=== PATIENT | male | born 1955 | race Caucasian/White ===

== ENCOUNTER 2024-03-26 14:08 | Outpatient (CLI) | payer MEDICARE, MEDICAID, SELFPAY ==
--- NOTE | 2024-03-26 | DI.RAD_ITS ---
Exam(s) XR LUMBAR SPINE COMPLETE EXAM: XR LUMBAR SPINE COMPLETE CLINICAL HISTORY: M25.552: Pain in LT hip. TECHNIQUE: 2D digital imaging was performed. Five views. COMPARISON: No exams were available for comparison FINDINGS: BONES: No acute fracture or destructive lesion is visible. There is some mild loss of vertebral jamel dy height at L1 and L4. T11 vertebral body also shows mild loss of height. Old right L1 through L5 transverse process fractures. Facet degenerative changes present greatest at L3-4 through L5-S1. DISKS: Multilevel disc space narrowing and osteophyte formation, greatest at L4-5. ALIGNMENT: Lumbar spinal alignment is within normal limits. SOFT TISSUE: Vascular calcifications. Midline skin natali. Multiple surgical clips in the paraspin al region. IMPRESSION: Old mild compression fractures of T11, L1 and L4. Old right-sided transverse process fractures. Multilevel degenerative disc changes and facet degenerative changes, greatest at L4-5. DATA REPOSITORY: RADIATION DOSE DELIVERED:
--- NOTE | 2024-03-26 | DI.RAD_ITS ---
Exam(s) XR HIP LT COMPLETE AP PELVIS EXAM: XR HIP LT COMPLETE AP PELVIS CLINICAL HISTORY: M25.552: Pain in LT hip. TECHNIQUE: 2D digital imaging was performed. Two views. COMPARISON: No exams were available for comparison FINDINGS: BONES: No acute fracture is present. No bony destructive lesion is seen. JOINTS: No dislocation present. The SI joints and pubic symphysis are intact. There is severe narrowing of the left hip joint space, with a [id number] appearance. There are lar ge subchondral cysts on both sides of the joint. There is some flattening of the left femoral head a nd and some remodeling of the acetabulum as well as periarticular spurring. There is mild to moderate narrowing of the right hip joint space with mild periarticular spurring. SOFT TISSUE: Normal. IMPRESSION: Severe degenerative changes of the left hip. Pvvy-yl-sabvyyin degenerative changes of the right hip. DATA REPOSITORY: RADIATION DOSE DELIVERED:
== END 2024-03-26 14:28 ==
PROVIDERS: Visit Provider Family Medicine
DX: M51.361 Other intervertebral disc degeneration, lumbar region with lower extremity pain only (principal); M16.0 Bilateral primary osteoarthritis of hip
CPT/HCPCS: 72110; 73502

== ENCOUNTER 2024-06-11 17:24 | Outpatient (REF) | payer MEDICARE, MEDICAID, SELFPAY ==
[2024-06-11 19:46] LABS: Abs Immature Grans 0.04 10^3/uL (0.0-0.06); Absolute Basophil Count 0.09 10^3/uL (0.0-0.2); Absolute Eosinophil Count 0.22 10^3/uL (0.0-0.7); Absolute Lymphocyte Count 2.21 10^3/uL (1.2-3.4); Absolute Monocyte Count 0.94 10^3/uL (0.1-0.8); Basophils % 0.8 %; HCT 44.4 % (40.0-50.0); HGB 14.9 g/dL (13.5-17.5); Immature Grans % 0.4 %; Lymphocytes % 20.2 %; MCH 31.6 pg (27.0-33.0); MCHC 33.6 % (32.0-36.0); MCV 94 fL (80-95); MPV 8.3 fL (8.0-11.0); Monocytes % 8.6 %; Platelet Count 324 10^3/uL (130-400); RBC 4.71 10^6/uL (4.36-5.78); RDW 13.2 % (11.8-14.1); RDW-SD 45.7 fL; WBC 10.92 10^3/uL (4.4-10.8)
[2024-06-11 19:48] LABS: Absolute Neutrophil Count 7.43 10^3/uL (1.2-6.7)
[2024-06-11 20:08] LABS: ALT 21 U/L (16-63); AST 25 U/L (15-37); Albumin 3.5 g/dL (3.4-5.0); Alkaline Phosphatase 102 U/L (46-116); Anion Gap 3.9 mmol/L (3-11); BUN 21 mg/dL (7-18); Bilirubin, Total 0.39 mg/dL (0.2-1.0); CO2 31.1 mmol/L (21.0-32.0); CREATININE 1.3 mg/dL (0.70-1.30); Calcium 9.1 mg/dL (8.5-10.1); Calculated LDL 94 mg/dL (<100); Chloride 102 mmol/L (98-107); Cholesterol 185 mg/dL (<200); Estimated GFR 60.21 (mL/min/1.73m2); Glucose 77 mg/dL (74-106); HDL Cholesterol 74 mg/dL (40-60); Potassium 4.5 mmol/L (3.5-5.1); Sodium 137 mmol/L (136-145); TSH 5.64 uIU/mL (0.36-3.74); Total Protein 7.1 g/dL (6.4-8.2); Triglyceride 88 mg/dL (<150)
[2024-06-11 20:45] LABS: Hemoglobin A1C 5.5 % (<5.7)
[2024-06-12 22:00] LABS: PSA, Screening 1.3 ng/mL (<=4.5)
== END 2024-06-11 17:25 | disposition home or self-care (01) ==
LOC: NCHCN 17:24
PROVIDERS: Visit Provider Family Medicine
DX: I10 Essential (primary) hypertension (principal)
CPT/HCPCS: 80053; 80061; 84153; 83036; 84443; 85025